=== PATIENT | male | born 1955 | race Caucasian/White ===

== ENCOUNTER 2019-03-25 13:56 | Emergency (ER) | payer MEDICARE ==
[~2019-03-25] VITALS: Ht 175.3 cm; Wt 102.7 kg
[2019-03-25 14:28] LABS: HEMATOCRIT 33.6 % (39.0-50.0); IMMATURE GRANULOCYTES 0.8 % (0.0-5.0); MEAN CELL VOLUME 91.1 fL CALC (80.0-100.0); MEAN CORPUSCULAR HGB 32.5 pG CALC (26.0-32.0); MEAN CORPUSCULAR HGB CONC 35.7 g/L CALC (32.0-36.0); NEUT# 8.47 thou/uL (1.82-7.42); RED BLOOD COUNT 3.69 mill/uL (4.70-6.10); RED CELL DISTRI WIDTH 12.8 % (11.5-15.5)
[2019-03-25 14:45] LABS: ALBUMIN 4.3 g/dL (3.2-5.0); ALKALINE PHOSPHATASE 54 u/l (38-126); ANION GAP 14 (6-22 (CALC)); BILIRUBIN, TOTAL 0.6 mg/dL (0.0-1.4); BUN 33 mg/dL (8-23); BUN/CREATININE RATIO 26 (12-20 (CALC)); CARBON DIOXIDE 25 mmol/l (22-30); CHLORIDE 103 mmol/l (95-108); CREATININE 1.3 mg/dL (0.7-1.3); GFR 55 ML/MIN (>=60 (CALC)); GFR FOR AFR.AMER. > 60 ML/MIN (>=60 (CALC)); POTASSIUM 4.4 mmol/l (3.5-5.1); SGOT/AST 33 u/l (19-48); SODIUM 138 mmol/l (137-146); TOTAL PROTEIN 6.8 g/dL (6.3-8.2)
[2019-03-25 14:56] LABS: MYOGLOBIN 94 ng/mL (0 - 121)
[2019-03-25] MEDS ORDERED: AMLODIPINE BESY10 MG PO (15:23)
[2019-03-25] MEDS ORDERED: HYDROCHLOROT25 MG PO (15:24)
[2019-03-25] MEDS ORDERED: LISINOPRIL20 M1 PO (15:24)
[2019-03-25] MEDS ORDERED: LYRICA75 MG PO (15:24)
[2019-03-25] MEDS ORDERED: NORCO1 TA2 PO (15:25)
[2019-03-25] MEDS ORDERED: BUPROPION HCL150 M1 PO (15:25)
[2019-03-25] MEDS ORDERED: VIAGRA100 MG PO (15:26)
[2019-03-25] MEDS ORDERED: APRESOLINE50 MG PO (15:26)
[2019-03-25] MEDS ORDERED: CYCLOBENZAPR10 MG PO (15:27)
[2019-03-25] MEDS ORDERED: CLOBETASOL PRO EX (15:28)
[2019-03-25] MEDS ORDERED: GLIMEPIRIDE4 MG PO (15:28)
[2019-03-25] MEDS ORDERED: ZOFRAN4 MG/TAB PO (15:29)
[2019-03-25] MEDS ORDERED: ATORVASTATIN CA80 MG PO (15:29)
[2019-03-25 16:19] LABS: URINE BILIRUBIN - DIPSTICK NEGATIVE (NEGATIVE); URINE BLOOD DIPSTICK NEGATIVE (NEGATIVE); URINE COLOR YELLOW; URINE GLUCOSE - DIPSTICK NEGATIVE (NEGATIVE); URINE KETONE NEGATIVE (NEGATIVE); URINE LEUK ESTERASE NEGATIVE (NEGATIVE); URINE NITRITE - DIPSTICK NEGATIVE (Negative); URINE PH 6.5 (4.5-8.0); URINE PROTEIN - DIPSTICK NEGATIVE (NEG-TRACE); URINE SPECIFIC GRAVITY 1.015; URINE UROBILINOGEN - DIPSTICK 0.2 E.U./dL (0.2)
[2019-03-25 16:23] LABS: BARBITURATES NEGATIVE (NEGATIVE); COCAINE NEGATIVE (NEGATIVE); METHADONE NEGATIVE (NEGATIVE); TETRAHYDROCANNABIONOL POSITIVE (NEGATIVE); TRICYLIC ANTIDEPRESSANTS NEGATIVE (NEGATIVE)
[2019-03-25 16:24] LABS: OXCYCODONE NEGATIVE (NEGATIVE)
[2019-03-25 17:14] VITALS: BP 128/63
== END 2019-03-25 17:35 | disposition home or self-care (01) ==
LOC: ED 13:56
PROVIDERS: Family Medicine
DX: I95.9 Hypotension, unspecified (principal); E86.0 Dehydration; F12.90 Cannabis use, unspecified, uncomplicated; R11.2 Nausea with vomiting, unspecified; R53.1 Weakness